=== PATIENT | male | born 1935 | race Caucasian/White ===

== ENCOUNTER → 2018-08-29 | Outpatient (REF) | payer MEDICARE, BC ==
[~2018-08-29] MED LIST: AMLODIPINE BESYL5 MG PO; ASPIRINCHW 81MG PO; ATENOLOL50 MG OR; AVODART0.5 MG OR; BABY ASPIRIN81 MG OR; LOSARTAN POT50 MG PO; Levaquin OR; PRILOSEC20 MG PO; TAMSULOSIN0.4 MG PO
== END | disposition home or self-care (01) ==
LOC: MRI 09:09
PROVIDERS: ATTEND Nurse Practitioner Family
DX: M25.562 Pain in left knee (principal); S83.242D Other tear of medial meniscus, current injury, left knee, subsequent encounter

== ENCOUNTER → 2018-09-16 | Outpatient (REF) | payer MEDICARE, BC ==
[2018-09-16 07:24] LABS: HEMATOCRIT 46.4 % (39.0-50.0); HEMOGLOBIN 15.5 g/dl (14.0-18.0); IMMATURE GRANULOCYTES 0.4 % (0.0-5.0); MEAN CELL VOLUME 92.1 fL CALC (80.0-100.0); MEAN CORPUSCULAR HGB 30.8 pG CALC (26.0-32.0); MEAN CORPUSCULAR HGB CONC 33.4 g/L CALC (32.0-36.0); NEUT# 4.04 thou/uL (1.82-7.42); RED BLOOD COUNT 5.04 mill/uL (4.70-6.10); RED CELL DISTRI WIDTH 14.2 % (11.5-15.5)
[2018-09-16 07:49] LABS: ALBUMIN 4.5 g/dL (3.2-5.0); ALKALINE PHOSPHATASE 74 u/l (38-126); ANION GAP 15 (6-22 (CALC)); BILIRUBIN, TOTAL 0.7 mg/dL (0.0-1.4); BUN 13 mg/dL (8-23); BUN/CREATININE RATIO 15 (12-20 (CALC)); CALCULATED LDLCHOLESTEROL 69 mg/dL (62-129 (CALC)); CARBON DIOXIDE 28 mmol/l (22-30); CHLORIDE 102 mmol/l (95-108); CHOLESTEROL HDL RATIO 5.3 (<4.4 (CALC)); CREATININE 0.9 mg/dL (0.7-1.3); GFR > 60 ML/MIN (>=60 (CALC)); GFR FOR AFR.AMER. > 60 ML/MIN (>=60 (CALC)); HDL CHOLESTEROL 30 mg/dL (>=40); POTASSIUM 4.7 mmol/l (3.5-5.1); SGOT/AST 27 u/l (19-48); SODIUM 139 mmol/l (137-146); TOTAL CHOLESTEROL 158 mg/dl (0-199); TOTAL PROTEIN 6.6 g/dL (6.3-8.2); TOTAL TRIGLYCERIDES 296 mg/dl (30-149); VLDL CHOLESTROL 59 mg/dl (0-38 (CALC))
== END | disposition home or self-care (01) ==
LOC: LAB 06:45
PROVIDERS: ATTEND Nurse Practitioner Family
DX: C92.01 Acute myeloblastic leukemia, in remission (principal); E78.49 Other hyperlipidemia; I10 Essential (primary) hypertension; N40.0 Benign prostatic hyperplasia without lower urinary tract symptoms; R97.20 Elevated prostate specific antigen [PSA]

== ENCOUNTER 2018-10-07 01:21 | Observation (INO) | payer MEDICARE, BC ==
[~2018-10-07] VITALS: Ht 185.4 cm; Wt 88.9 kg
[~2018-10-07 01:21] MED LIST changes: -AMLODIPINE BESYL5 MG PO; -LOSARTAN POT50 MG PO
--- NOTE | 2018-10-07 01:30 | NUR ---
PATIENT TO ROOM 9 VIA WHEELCHAIR FOR BEDSIDE TRIAGE. PATIENT UNDRESSED INTO A GOWN, PLACED ON MONITOR. AWAITING MD OWEN.
[2018-10-07] MEDS ORDERED: AMLODIPINE BESYL5 MG PO (01:57)
[2018-10-07] MEDS ORDERED: LOSARTAN POT50 MG PO (01:57)
[2018-10-07 02:39] LABS: HEMATOCRIT 43.3 % (39.0-50.0); HEMOGLOBIN 14.5 g/dl (14.0-18.0); IMMATURE GRANULOCYTES 0.6 % (0.0-5.0); MEAN CELL VOLUME 91.7 fL CALC (80.0-100.0); MEAN CORPUSCULAR HGB 30.7 pG CALC (26.0-32.0); MEAN CORPUSCULAR HGB CONC 33.5 g/L CALC (32.0-36.0); NEUT# 4.26 thou/uL (1.82-7.42); RED BLOOD COUNT 4.72 mill/uL (4.70-6.10); RED CELL DISTRI WIDTH 13.6 % (11.5-15.5)
[2018-10-07 02:51] LABS: ALBUMIN 4.4 g/dL (3.2-5.0); ALKALINE PHOSPHATASE 71 u/l (38-126); ANION GAP 12 (6-22 (CALC)); BILIRUBIN, TOTAL 0.7 mg/dL (0.0-1.4); BUN 20 mg/dL (8-23); BUN/CREATININE RATIO 22 (12-20 (CALC)); CARBON DIOXIDE 27 mmol/l (22-30); CHLORIDE 103 mmol/l (95-108); CREATININE 0.9 mg/dL (0.7-1.3); GFR > 60 ML/MIN (>=60 (CALC)); GFR FOR AFR.AMER. > 60 ML/MIN (>=60 (CALC)); SGOT/AST 26 u/l (19-48); SODIUM 138 mmol/l (137-146); TOTAL PROTEIN 6.7 g/dL (6.3-8.2)
[2018-10-07 03:03] LABS: MYOGLOBIN 65 ng/mL (0 - 121)
[2018-10-07 03:36] LABS: URINE BILIRUBIN - DIPSTICK NEGATIVE (NEGATIVE); URINE BLOOD DIPSTICK NEGATIVE (NEGATIVE); URINE COLOR YELLOW; URINE GLUCOSE - DIPSTICK NEGATIVE (NEGATIVE); URINE KETONE NEGATIVE (NEGATIVE); URINE LEUK ESTERASE NEGATIVE (NEGATIVE); URINE NITRITE - DIPSTICK NEGATIVE (Negative); URINE PROTEIN - DIPSTICK NEGATIVE (NEG-TRACE); URINE UROBILINOGEN - DIPSTICK 0.2 E.U./dL (0.2)
[2018-10-07 03:38] LABS: COCAINE NEGATIVE (NEGATIVE); METHADONE NEGATIVE (NEGATIVE); TETRAHYDROCANNABIONOL NEGATIVE (NEGATIVE)
[2018-10-07 03:39] LABS: BARBITURATES NEGATIVE (NEGATIVE); OXCYCODONE NEGATIVE (NEGATIVE); TRICYLIC ANTIDEPRESSANTS NEGATIVE (NEGATIVE)
--- NOTE | 2018-10-07 04:15 | NUR ---
TO BE ADMITTED. DISCUSSED.
--- NOTE | 2018-10-07 05:03 | NUR ---
Admission Note Report Given to: HIRA CORBIN Transported by: Wheelchair X Stretcher Transported with: X Nurse Transporter X Patent IV [id number] X Tree Doctor
--- NOTE | 2018-10-07 05:10 | NUR ---
TO FLOOR BY STRETCHER
[2018-10-07 05:12] VITALS: BP 146/82
--- NOTE | 2018-10-07 05:22 | NUR ---
PT. ARRIVED TO THE FLOOR AT 0510 VIA STRETCHER ACCOMPANIED BY ER NURSE; PT. ABLE TO AMBULATE TO SCALE AND BED WITH STEADY GAIT; HATCHERY HELPER IN AT BEDSIDE OBTAINING VS; VSS; TELEMETRY IN PLACE; EDUCATED ON POC, CALL LIGHT, AND ROOM; VERBALIZES UNDERSTANDING; AT BEDSIDE; NEURO CHECK COMPLETED AND WNL; ADMISSION ASSESSMENT COMPLETED; ENCOURAGED TO CALL FOR ANY NEEDS; CALL LIGHT IS IN REACH; WILL CONTINUE TO MONITOR.
--- NOTE | 2018-10-07 07:00 | NUR ---
REPORT RECEIVED FROM HIRA CORBIN;PT RESTING IN SEMI FOWLERS POSITION WITH SPOUSE AT BEDSIDE;INTRODUCED SELF TO PT AND POC DISCUSSED;RESPIRATIONS EVEN AND UNLABORED ON RA;PT DENIES ANY CURRENT PAIN OR NEEDS;ENCOURAGED TO CALL FOR ASSISTANCE IF NEEDED;FALL PRECAUTIONS IN PLACE WITH BED IN THE LOWEST POSITION AND CALL LIGHT IN REACH;WILL CONTINUE TO MONITOR
--- NOTE | 2018-10-07 10:00 | NUR ---
PT RESTING IN SEMI FOWLERS POSITION,A&O X3;IT SHOULD BE NOTED THAT PT IS VERY HARD OR HEARING;PT DENIES ANY CURRENT PAIN OR DIZZINESS, PAIN SCALE AND REPORTING EDUCATED;RESPIRATIONS EVEN AND UNLABORED ON RA,CLEAR LUNG SOUNDS;ABDOMEN SOFT ON PALPATION AND ACTIVE IN ALL 4 QUADRANTS;STRONG PEDAL PULSES;SKIN INTACT;TELE MONITORING IN PLACE;#20G TO RAC FLUSHED AND NORMAL SALINE STARTED AT 100ML/HR PER ORDER;ORTHOSTATICS OBTAINED AT THIS TIME SUPINE BP 121/70 HR 71, SITTING BP 142/82 HR 78, AND STANDING BP 130/83 HR 87;PT DENIES ANY DIZZINESS WHILE TAKING ORTHOSTATICS;PT DENIES ANY ADDITIONAL NEEDS AND IS ENCOURAGED TO CALL FOR ASSISTANCE IF NEEDED;FALL PRECAUTIONS IN PLACE WITH CALL LIGHT IN REACH;WILL CONTINUE TO MONITOR
[2018-10-07 10:02] VITALS: BP 121/70
[2018-10-07 10:07] VITALS: BP 142/82
[2018-10-07 10:12] VITALS: BP 130/83
--- NOTE | 2018-10-07 11:40 | NUR ---
PT RESTING IN BED WITH FAMILY AT BEDSIDE;RESPIRATIONS EVEN AND UNLABORED ON RA;PT DENIES ANY CURRENT PAIN OR NEEDS;IV FLUIDS D/C AT THIS TIME PER ; AT BEDSIDE DISCUSSING POC INCLUDING D/C HOME,PT AND FAMILY VERBALIZE UNDERSTANDING;TELE MONITORING IN PLACE;PT DENIES ANY ADDITIONAL NEEDS AT THIS TIME AND IS ENCOURAGED TO CALL FOR ASSISTANCE IF NEEDED;CALL LIGHT IN REACH;WILL CONTINUE TO MONITOR
[2018-10-07 12:00] VITALS: BP 135/78
--- NOTE | 2018-10-07 13:00 | NUR ---
PT AMBULATED WITH A STEADY GAIT THROUGHOUT ALL 3 HALLWAYS;PT DENIES ANY DIZZINESS OR PAIN;RE-POSITIONED IN BED FOR COMFORT;WILL CONTINUE TO MONITOR
--- NOTE | 2018-10-07 15:35 | NUR ---
ALL DISCHARGE INSTRUCTIONS PROVIDED AT THIS TIME,QUESTIONS ANSWERED;IV SITE REMOVED;PT DENIES ANY ADDITIONAL NEEDS AND IS ENCOURAGED TO FOLLOW UP WITH PRIMARY CARE DOCTOR;PT DENIES THE NEED FOR WHEELCHAIR FOR DISCHARGE HOME.
--- NOTE | 2018-10-07 15:39 | NUR ---
Discharge instructions given. Patient verbalizes understanding of same. Discharged in stable condition via Ambulatory to Home with family. All belongings sent with pt. Pt ambulated with a steady gait accompanied by family.
== END 2018-10-07 15:43 | disposition home or self-care (01) ==
LOC: ED 01:21 → ED-I 04:00 → ED 04:46 → MS2 04:47
PROVIDERS: Emergency Medicine; ADMIT Internal Medicine; ATTEND Internal Medicine
DX: R42 Dizziness and giddiness (principal); I10 Essential (primary) hypertension; C95.90 Leukemia, unspecified not having achieved remission; N40.0 Benign prostatic hyperplasia without lower urinary tract symptoms; H91.90 Unspecified hearing loss, unspecified ear; Z85.72 Personal history of non-Hodgkin lymphomas; Z92.21 Personal history of antineoplastic chemotherapy
CPT/HCPCS: J1650

== ENCOUNTER 2021-11-05 00:21 | Emergency (ER) | payer MEDICARE, BC ==
[~2021-11-05] VITALS: Ht 185.4 cm; Wt 84.0 kg
[2021-11-05] VITALS (7 sets, daily range): BP systolic 95–136; BP diastolic 49–79
[~2021-11-05 00:21] MED LIST changes: +AMLODIPINE BESYL5 MG PO; +LOSARTAN POT50 MG PO
[2021-11-05 01:14] LABS: URINE BILIRUBIN - DIPSTICK NEGATIVE (NEGATIVE); URINE BLOOD DIPSTICK SMALL (NEGATIVE); URINE COLOR YELLOW; URINE GLUCOSE - DIPSTICK NEGATIVE (NEGATIVE); URINE KETONE NEGATIVE (NEGATIVE); URINE LEUK ESTERASE NEGATIVE (NEGATIVE); URINE PH 5.5 (4.5-8.0); URINE PROTEIN - DIPSTICK NEGATIVE (NEG-TRACE); URINE UROBILINOGEN - DIPSTICK 0.2 E.U./dL (0.2)
[2021-11-05 01:20] LABS: URINE NITRITE - DIPSTICK NEGATIVE (Negative)
[2021-11-05 01:22] LABS: IMMATURE GRANULOCYTES 0.3 % (0.0-5.0); MEAN CELL VOLUME 93.2 fL CALC (80.0-100.0); MEAN CORPUSCULAR HGB 30.7 pG CALC (26.0-32.0); MEAN CORPUSCULAR HGB CONC 32.9 g/dL CAL (32.0-36.0); NEUT# 2.77 thou/uL (1.82-7.42); RED BLOOD COUNT 4.53 mill/uL (4.70-6.10); RED CELL DISTRI WIDTH 13.8 % (11.5-15.5)
[2021-11-05 01:24] LABS: HEMATOCRIT 42.2 % (39.0-50.0); HEMOGLOBIN 13.9 g/dl (14.0-18.0)
[2021-11-05 01:26] LABS: ALBUMIN 3.9 g/dL (3.2-5.0); ALKALINE PHOSPHATASE 74 u/l (38-126); ANION GAP 9 (6-22 (CALC)); BILIRUBIN, TOTAL 0.8 mg/dL (0.0-1.4); BUN 23 mg/dL (8-23); BUN/CREATININE RATIO 26 (12-20 (CALC)); CARBON DIOXIDE 26 mmol/l (22-30); CHLORIDE 106 mmol/l (95-108); CPK 33 u/l (52-200); CREATININE 0.9 mg/dL (0.7-1.3); GFR > 60 ML/MIN (>=60 (CALC)); GFR FOR AFR.AMER. > 60 ML/MIN (>=60 (CALC)); MAGNESIUM 1.7 mg/dL (1.6-2.3); POTASSIUM 3.8 mmol/l (3.5-5.1); SGOT/AST 23 u/l (19-48); SODIUM 137 mmol/l (137-146); TOTAL PROTEIN 5.9 g/dL (6.3-8.2)
[2021-11-05 01:30] LABS: URINE SQUAMOUS EPITHELIAL CELL FEW EPI/hpf (0-FEW); URINE WBC 0-2 WBC/hpf (0-5)
[2021-11-05] MEDS ORDERED: VENTOLIN HFA IN (02:26)
[2021-11-05] MEDS ORDERED: VIBRAMYCIN100 M2 PO (02:26)
--- NOTE | 2021-11-06 08:00 | NUR ---
PRELIMINARY BLOOD CULTURE RESULTS SHOW GRAM POSITIVE COCCI IN 4/[address] HORTON. PT PRESENTED WITH CHILLS/FEVER. WOULD LIKE PT TO RETURN FOR RE-EVAL. CALLED PT AND PT'S , NEITHER PHONE HAVE VM SET UP. WILL CALL AGAIN LATER.
== END 2021-11-05 02:44 | disposition home or self-care (01) ==
LOC: ED 00:21
PROVIDERS: Family Medicine
DX: J20.9 Acute bronchitis, unspecified (principal); R78.81 Bacteremia; C85.90 Non-Hodgkin lymphoma, unspecified, unspecified site; I10 Essential (primary) hypertension; N40.0 Benign prostatic hyperplasia without lower urinary tract symptoms; Z79.899 Other long term (current) drug therapy; Z95.828 Presence of other vascular implants and grafts; Z28.310 Unvaccinated for COVID-19; Z20.822 Contact with and (suspected) exposure to COVID-19

== ENCOUNTER 2021-11-08 09:11 | Emergency (ER) | payer MEDICARE, BC ==
[2021-11-08] VITALS (8 sets, daily range): BP systolic 145–168; BP diastolic 75–97
[~2021-11-08] VITALS: Ht 185.4 cm; Wt 85.9 kg
[~2021-11-08 09:11] MED LIST changes: +VENTOLIN HFA IN; +VIBRAMYCIN100 M2 PO
[2021-11-08] MEDS ORDERED: METOCLOPRAMIDE10 M1 (10:24)
[2021-11-08] MEDS ORDERED: [UNRECOGNIZED DRUG - OTHER] (10:25)
[2021-11-08 11:10] LABS: HEMATOCRIT 40.4 % (39.0-50.0); HEMOGLOBIN 13.4 g/dl (14.0-18.0); MEAN CELL VOLUME 94.4 fL CALC (80.0-100.0); MEAN CORPUSCULAR HGB 31.3 pG CALC (26.0-32.0); MEAN CORPUSCULAR HGB CONC 33.2 g/dL CAL (32.0-36.0); NEUT# 4.28 thou/uL (1.82-7.42); RED BLOOD COUNT 4.28 mill/uL (4.70-6.10); RED CELL DISTRI WIDTH 13.9 % (11.5-15.5)
[2021-11-08 11:28] LABS: ALBUMIN 3.5 g/dL (3.2-5.0); ALKALINE PHOSPHATASE 65 u/l (38-126); ANION GAP 11 (6-22 (CALC)); BUN 24 mg/dL (8-23); BUN/CREATININE RATIO 28 (12-20 (CALC)); CARBON DIOXIDE 26 mmol/l (22-30); CHLORIDE 102 mmol/l (95-108); CREATININE 0.9 mg/dL (0.7-1.3); GFR > 60 ML/MIN (>=60 (CALC)); GFR FOR AFR.AMER. > 60 ML/MIN (>=60 (CALC)); MAGNESIUM 1.9 mg/dL (1.6-2.3); POTASSIUM 4.2 mmol/l (3.5-5.1); SGOT/AST 21 u/l (19-48); SODIUM 135 mmol/l (137-146); TOTAL PROTEIN 5.7 g/dL (6.3-8.2)
[2021-11-08 11:44] LABS: IMMATURE GRANULOCYTES 6.7 % (0.0-5.0)
== END 2021-11-08 12:23 | disposition home or self-care (01) ==
LOC: ED 09:11
PROVIDERS: Internal Medicine
DX: T80.211A Bloodstream infection due to central venous catheter, initial encounter (principal); I10 Essential (primary) hypertension; C85.90 Non-Hodgkin lymphoma, unspecified, unspecified site; C95.90 Leukemia, unspecified not having achieved remission; Y83.8 Other surgical procedures as the cause of abnormal reaction of the patient, or of later complication, without mention of misadventure at the time of the procedure; Z20.822 Contact with and (suspected) exposure to COVID-19

== ENCOUNTER 2022-09-17 23:11 | Emergency (ER) | payer MEDICARE, BC ==
[~2022-09-17] VITALS: Ht 182.9 cm; Wt 71.3 kg
[~2022-09-17 23:11] MED LIST changes: +ASPIRIN81 MG PO; +AZITHROMYCIN500 MG PO; +LIPITOR40 M1 PO; +METOCLOPRAMIDE10 M1; +PLAVIX75 MG PO; +[UNRECOGNIZED DRUG - OTHER]
[2022-09-18 00:57] VITALS: BP 132/73
== END 2022-09-18 00:57 | disposition home or self-care (01) ==
LOC: ED 23:11
DX: T83.031A Leakage of indwelling urethral catheter, initial encounter (principal); N40.1 Benign prostatic hyperplasia with lower urinary tract symptoms; R33.8 Other retention of urine; I10 Essential (primary) hypertension; C85.90 Non-Hodgkin lymphoma, unspecified, unspecified site; I25.2 Old myocardial infarction; Y84.6 Urinary catheterization as the cause of abnormal reaction of the patient, or of later complication, without mention of misadventure at the time of the procedure; Z95.5 Presence of coronary angioplasty implant and graft; Z86.711 Personal history of pulmonary embolism

== ENCOUNTER 2022-09-25 08:51 | Inpatient (IN) | payer MEDICARE, BC ==
[~2022-09-25] VITALS: Ht 182.9 cm; Wt 74.0 kg
[2022-09-25] VITALS (13 sets, daily range): BP systolic 125–169; BP diastolic 79–98
[2022-09-25 09:49] LABS: BASO% 0.3 % (0-3); EOS% 1.6 % (0-8); HEMATOCRIT 35.9 % (39.0-50.0); HEMOGLOBIN 11.3 g/dl (14.0-18.0); IMMATURE GRANULOCYTES 0.6 % (0.0-5.0); LYMPH% 32.4 % (15-41); MEAN CELL VOLUME 87.3 fL CALC (80.0-100.0); MEAN CORPUSCULAR HGB 27.5 pG CALC (26.0-32.0); MEAN CORPUSCULAR HGB CONC 31.5 g/dL CAL (32.0-36.0); MONO% 4.9 % (2-13); NEUT# 4.14 thou/uL (1.82-7.42); NEUT% 60.2 % (42-76); RED BLOOD COUNT 4.11 mill/uL (4.70-6.10); RED CELL DISTRI WIDTH 14.3 % (11.5-15.5)
[2022-09-25 10:02] LABS: ALBUMIN 3.3 g/dL (3.2-5.0); ALKALINE PHOSPHATASE 89 u/l (38-126); BUN 22 mg/dL (8-23); BUN/CREATININE RATIO 26 (12-20 (CALC)); CHLORIDE 93 mmol/l (95-108); CREATININE 0.9 mg/dL (0.7-1.3); GFR FOR AFR.AMER. > 60 ML/MIN (>=60 (CALC)); GFR OTHER RACES > 60 ML/MIN (>=60 (CALC)); POTASSIUM 3.6 mmol/l (3.5-5.1); SODIUM 136 mmol/l (137-146); TOTAL PROTEIN 5.4 g/dL (6.3-8.2)
[2022-09-25 10:03] LABS: ANION GAP 9 (6-22 (CALC)); BILIRUBIN, TOTAL 1.2 mg/dL (0.2-1.3); CARBON DIOXIDE 38 mmol/l (22-30); SGOT/AST 81 u/l (19-48)
[2022-09-25 19:01] LABS: URINE BILIRUBIN - DIPSTICK NEGATIVE (NEGATIVE); URINE BLOOD DIPSTICK MODERATE (NEGATIVE); URINE CLARITY SL CLOUDY; URINE COLOR YELLOW; URINE GLUCOSE - DIPSTICK NEGATIVE (NEGATIVE); URINE KETONE NEGATIVE (NEGATIVE); URINE LEUK ESTERASE NEGATIVE (Negative); URINE NITRITE - DIPSTICK NEGATIVE (Negative); URINE PH 8.5 (4.5-8.0); URINE PROTEIN - DIPSTICK TRACE mg/dL (NEG-TRACE); URINE SPECIFIC GRAVITY 1.015; URINE UROBILINOGEN - DIPSTICK 0.2 E.U./dL (0.2)
[2022-09-25 19:23] LABS: URINE AMORPH SEDIMENT FEW hpf (NONE-FER); URINE BACTERIA FEW hpf; URINE WBC 0-2 WBC/hpf (0-5)
[2022-09-26 04:00] VITALS: BP 134/71
[2022-09-26 05:27] LABS: BASO% 0.3 % (0-3); IMMATURE GRANULOCYTES 0.8 % (0.0-5.0); LYMPH% 24.1 % (15-41); MEAN CELL VOLUME 87.5 fL CALC (80.0-100.0); MEAN CORPUSCULAR HGB 27.7 pG CALC (26.0-32.0); MEAN CORPUSCULAR HGB CONC 31.7 g/dL CAL (32.0-36.0); MONO% 10.5 % (2-13); NEUT# 2.4 thou/uL (1.82-7.42); NEUT% 64.3 % (42-76); RED BLOOD COUNT 3.21 mill/uL (4.70-6.10); RED CELL DISTRI WIDTH 14.2 % (11.5-15.5)
[2022-09-26 05:30] LABS: HEMATOCRIT 28.1 % (39.0-50.0); HEMOGLOBIN 8.9 g/dl (14.0-18.0)
[2022-09-26 05:41] VITALS: BP 165/72
[2022-09-26 06:03] LABS: ALBUMIN 2.7 g/dL (3.2-5.0); ALKALINE PHOSPHATASE 87 u/l (38-126); BUN 25 mg/dL (8-23); BUN/CREATININE RATIO 29 (12-20 (CALC)); C-REACTIVE PROTEIN 6.7 mg/dL (0-0.9); CARBON DIOXIDE 36 mmol/l (22-30); CHLORIDE 95 mmol/l (95-108); CREATININE 0.9 mg/dL (0.7-1.3); GFR FOR AFR.AMER. > 60 ML/MIN (>=60 (CALC)); GFR OTHER RACES > 60 ML/MIN (>=60 (CALC)); SGOT/AST 65 u/l (19-48); SODIUM 135 mmol/l (137-146); TOTAL PROTEIN 4.6 g/dL (6.3-8.2)
[2022-09-26 06:14] LABS: ANION GAP 8 (6-22 (CALC)); BILIRUBIN, TOTAL 0.4 mg/dL (0.2-1.3); POTASSIUM 3.5 mmol/l (3.5-5.1)
[2022-09-26 10:00] VITALS: BP 129/71
[2022-09-26 15:14] VITALS: BP 148/79
[2022-09-26 19:05] VITALS: BP 145/83
[2022-09-27] VITALS (7 sets, daily range): BP systolic 138–162; BP diastolic 63–86
[2022-09-27 05:20] LABS: HEMATOCRIT 28.8 % (39.0-50.0); HEMOGLOBIN 9.3 g/dl (14.0-18.0); MEAN CORPUSCULAR HGB 28.1 pG CALC (26.0-32.0); MEAN CORPUSCULAR HGB CONC 32.3 g/dL CAL (32.0-36.0); RED BLOOD COUNT 3.31 mill/uL (4.70-6.10); RED CELL DISTRI WIDTH 14.3 % (11.5-15.5)
[2022-09-27 05:36] LABS: ALBUMIN 2.7 g/dL (3.2-5.0); ALKALINE PHOSPHATASE 81 u/l (38-126); ANION GAP 6 (6-22 (CALC)); BILIRUBIN, TOTAL 0.5 mg/dL (0.2-1.3); BUN 29 mg/dL (8-23); BUN/CREATININE RATIO 37 (12-20 (CALC)); CARBON DIOXIDE 36 mmol/l (22-30); CHLORIDE 95 mmol/l (95-108); CREATININE 0.8 mg/dL (0.7-1.3); GFR FOR AFR.AMER. > 60 ML/MIN (>=60 (CALC)); GFR OTHER RACES > 60 ML/MIN (>=60 (CALC)); MAGNESIUM 1.6 mg/dL (1.6-2.3); POTASSIUM 3.5 mmol/l (3.5-5.1); SGOT/AST 66 u/l (19-48); SODIUM 133 mmol/l (137-146); TOTAL PROTEIN 4.6 g/dL (6.3-8.2)
[2022-09-28] VITALS (10 sets, daily range): BP systolic 132–157; BP diastolic 68–85
[2022-09-28 06:18] LABS: BASO% 0.1 % (0-3); EOS% 0.3 % (0-8); HEMATOCRIT 31.9 % (39.0-50.0); HEMOGLOBIN 10.1 g/dl (14.0-18.0); IMMATURE GRANULOCYTES 0.8 % (0.0-5.0); LYMPH% 25.1 % (15-41); MEAN CELL VOLUME 86.4 fL CALC (80.0-100.0); MEAN CORPUSCULAR HGB 27.4 pG CALC (26.0-32.0); MEAN CORPUSCULAR HGB CONC 31.7 g/dL CAL (32.0-36.0); MONO% 5.2 % (2-13); NEUT# 4.84 thou/uL (1.82-7.42); NEUT% 68.5 % (42-76); RED BLOOD COUNT 3.69 mill/uL (4.70-6.10); RED CELL DISTRI WIDTH 14.4 % (11.5-15.5)
[2022-09-28 06:58] LABS: ALBUMIN 2.8 g/dL (3.2-5.0); ALKALINE PHOSPHATASE 90 u/l (38-126); ANION GAP 9 (6-22 (CALC)); BILIRUBIN, TOTAL 0.5 mg/dL (0.2-1.3); BUN 30 mg/dL (8-23); BUN/CREATININE RATIO 38 (12-20 (CALC)); CARBON DIOXIDE 30 mmol/l (22-30); CHLORIDE 98 mmol/l (95-108); CREATININE 0.8 mg/dL (0.7-1.3); GFR FOR AFR.AMER. > 60 ML/MIN (>=60 (CALC)); GFR OTHER RACES > 60 ML/MIN (>=60 (CALC)); POTASSIUM 3.6 mmol/l (3.5-5.1); SGOT/AST 65 u/l (19-48); SODIUM 132 mmol/l (137-146)
[2022-09-29] VITALS (7 sets, daily range): BP systolic 140–162; BP diastolic 71–93
[2022-09-29 05:48] LABS: HEMATOCRIT 27.3 % (39.0-50.0); HEMOGLOBIN 8.8 g/dl (14.0-18.0); MEAN CELL VOLUME 87.5 fL CALC (80.0-100.0); MEAN CORPUSCULAR HGB 28.2 pG CALC (26.0-32.0); MEAN CORPUSCULAR HGB CONC 32.2 g/dL CAL (32.0-36.0); RED BLOOD COUNT 3.12 mill/uL (4.70-6.10); RED CELL DISTRI WIDTH 14.2 % (11.5-15.5)
[2022-09-29 05:55] LABS: ALBUMIN 2.5 g/dL (3.2-5.0); ALKALINE PHOSPHATASE 73 u/l (38-126); ANION GAP 9 (6-22 (CALC)); BUN 31 mg/dL (8-23); BUN/CREATININE RATIO 39 (12-20 (CALC)); CARBON DIOXIDE 31 mmol/l (22-30); CHLORIDE 97 mmol/l (95-108); CREATININE 0.8 mg/dL (0.7-1.3); GFR FOR AFR.AMER. > 60 ML/MIN (>=60 (CALC)); GFR OTHER RACES > 60 ML/MIN (>=60 (CALC)); MAGNESIUM 1.5 mg/dL (1.6-2.3); POTASSIUM 3.8 mmol/l (3.5-5.1); SGOT/AST 51 u/l (19-48); SODIUM 133 mmol/l (137-146); TOTAL PROTEIN 4.3 g/dL (6.3-8.2)
[2022-09-29 06:07] LABS: BILIRUBIN, TOTAL 0.2 mg/dL (0.2-1.3)
[2022-09-30] VITALS (7 sets, daily range): BP systolic 124–165; BP diastolic 61–93
[2022-09-30 05:21] LABS: EOS% 0.6 % (0-8); HEMATOCRIT 27.5 % (39.0-50.0); HEMOGLOBIN 8.8 g/dl (14.0-18.0); IMMATURE GRANULOCYTES 1.7 % (0.0-5.0); MEAN CORPUSCULAR HGB 27.8 pG CALC (26.0-32.0); MONO% 7.9 % (2-13); NEUT# 4.08 thou/uL (1.82-7.42); NEUT% 76.8 % (42-76); RED BLOOD COUNT 3.16 mill/uL (4.70-6.10); RED CELL DISTRI WIDTH 14.6 % (11.5-15.5)
[2022-09-30 05:53] LABS: ALBUMIN 2.5 g/dL (3.2-5.0); ALKALINE PHOSPHATASE 77 u/l (38-126); ANION GAP 9 (6-22 (CALC)); BILIRUBIN, TOTAL 0.2 mg/dL (0.2-1.3); BUN 30 mg/dL (8-23); BUN/CREATININE RATIO 39 (12-20 (CALC)); CARBON DIOXIDE 28 mmol/l (22-30); CHLORIDE 100 mmol/l (95-108); CREATININE 0.8 mg/dL (0.7-1.3); GFR FOR AFR.AMER. > 60 ML/MIN (>=60 (CALC)); GFR OTHER RACES > 60 ML/MIN (>=60 (CALC)); POTASSIUM 4.4 mmol/l (3.5-5.1); SGOT/AST 47 u/l (19-48); SODIUM 133 mmol/l (137-146); TOTAL PROTEIN 4.3 g/dL (6.3-8.2)
[2022-10-01] VITALS (7 sets, daily range): BP systolic 127–153; BP diastolic 71–88
[2022-10-01 05:11] LABS: BASO% 0.2 % (0-3); EOS% 1.7 % (0-8); HEMOGLOBIN 9.2 g/dl (14.0-18.0); IMMATURE GRANULOCYTES 1.3 % (0.0-5.0); LYMPH% 13.5 % (15-41); MEAN CELL VOLUME 87.6 fL CALC (80.0-100.0); MEAN CORPUSCULAR HGB 27.8 pG CALC (26.0-32.0); MEAN CORPUSCULAR HGB CONC 31.7 g/dL CAL (32.0-36.0); MONO% 7.9 % (2-13); NEUT# 4.51 thou/uL (1.82-7.42); NEUT% 75.4 % (42-76); RED BLOOD COUNT 3.31 mill/uL (4.70-6.10); RED CELL DISTRI WIDTH 14.7 % (11.5-15.5)
[2022-10-01 05:27] LABS: ALBUMIN 2.6 g/dL (3.2-5.0); ALKALINE PHOSPHATASE 85 u/l (38-126); ANION GAP 8 (6-22 (CALC)); BILIRUBIN, TOTAL 0.2 mg/dL (0.2-1.3); BUN 28 mg/dL (8-23); BUN/CREATININE RATIO 37 (12-20 (CALC)); CARBON DIOXIDE 30 mmol/l (22-30); CHLORIDE 98 mmol/l (95-108); CREATININE 0.8 mg/dL (0.7-1.3); GFR FOR AFR.AMER. > 60 ML/MIN (>=60 (CALC)); GFR OTHER RACES > 60 ML/MIN (>=60 (CALC)); SGOT/AST 50 u/l (19-48); SODIUM 131 mmol/l (137-146); TOTAL PROTEIN 4.3 g/dL (6.3-8.2)
[2022-10-02 03:23] VITALS: BP 157/85
[2022-10-02 05:32] LABS: EOS% 0.6 % (0-8); HEMATOCRIT 28.4 % (39.0-50.0); MEAN CELL VOLUME 87.1 fL CALC (80.0-100.0); MEAN CORPUSCULAR HGB 27.6 pG CALC (26.0-32.0); MEAN CORPUSCULAR HGB CONC 31.7 g/dL CAL (32.0-36.0); MONO% 8.5 % (2-13); NEUT# 3.99 thou/uL (1.82-7.42); NEUT% 73.9 % (42-76); RED BLOOD COUNT 3.26 mill/uL (4.70-6.10)
[2022-10-02 05:35] VITALS: BP 148/78
[2022-10-02 06:02] LABS: ALBUMIN 2.8 g/dL (3.2-5.0); ALKALINE PHOSPHATASE 78 u/l (38-126); ANION GAP 8 (6-22 (CALC)); BUN 31 mg/dL (8-23); BUN/CREATININE RATIO 39 (12-20 (CALC)); C-REACTIVE PROTEIN 4.5 mg/dL (0-0.9); CARBON DIOXIDE 28 mmol/l (22-30); CHLORIDE 99 mmol/l (95-108); CREATININE 0.8 mg/dL (0.7-1.3); GFR FOR AFR.AMER. > 60 ML/MIN (>=60 (CALC)); GFR OTHER RACES > 60 ML/MIN (>=60 (CALC)); POTASSIUM 4.9 mmol/l (3.5-5.1); SGOT/AST 53 u/l (19-48); SODIUM 130 mmol/l (137-146); TOTAL PROTEIN 4.7 g/dL (6.3-8.2)
[2022-10-02 06:07] LABS: BILIRUBIN, TOTAL 0.3 mg/dL (0.2-1.3)
[2022-10-02 09:29] VITALS: BP 125/68
[2022-10-02 15:22] VITALS: BP 132/74
[2022-10-02 18:10] VITALS: BP 140/75
[2022-10-02 23:14] VITALS: BP 137/78
[2022-10-03 03:23] VITALS: BP 156/88
[2022-10-03 05:48] VITALS: BP 137/88
[2022-10-03 06:01] LABS: HEMATOCRIT 27.7 % (39.0-50.0); MEAN CELL VOLUME 86.6 fL CALC (80.0-100.0); MEAN CORPUSCULAR HGB 28.1 pG CALC (26.0-32.0); MEAN CORPUSCULAR HGB CONC 32.5 g/dL CAL (32.0-36.0); RED BLOOD COUNT 3.2 mill/uL (4.70-6.10); RED CELL DISTRI WIDTH 14.7 % (11.5-15.5)
[2022-10-03 06:21] LABS: ALBUMIN 2.7 g/dL (3.2-5.0); ALKALINE PHOSPHATASE 79 u/l (38-126); ANION GAP 9 (6-22 (CALC)); BILIRUBIN, TOTAL 0.2 mg/dL (0.2-1.3); BUN 30 mg/dL (8-23); BUN/CREATININE RATIO 39 (12-20 (CALC)); CARBON DIOXIDE 27 mmol/l (22-30); CHLORIDE 100 mmol/l (95-108); CREATININE 0.8 mg/dL (0.7-1.3); GFR FOR AFR.AMER. > 60 ML/MIN (>=60 (CALC)); GFR OTHER RACES > 60 ML/MIN (>=60 (CALC)); MAGNESIUM 1.6 mg/dL (1.6-2.3); POTASSIUM 4.3 mmol/l (3.5-5.1); SGOT/AST 41 u/l (19-48); SODIUM 132 mmol/l (137-146); TOTAL PROTEIN 4.5 g/dL (6.3-8.2)
[2022-10-03 07:49] VITALS: BP 119/61
[2022-10-03 09:36] VITALS: BP 134/70
[2022-10-03] MEDS ORDERED: OMNICEF300 MG PO (13:03)
[2022-10-03] MEDS ORDERED: DEXAMETHASON6 MG PO (13:04)
== END 2022-10-03 15:44 | disposition home health service (06) | DRG 193 ==
LOC: ED 08:51 → ED-I 10:20 → ED 13:46 → MS2 13:47
PROVIDERS: Family Medicine; Internal Medicine; ADMIT Internal Medicine; ATTEND Internal Medicine
PROC: 0T9B70Z Drainage of Bladder with Drainage Device, Via Natural or Artificial Opening (ICD-10-PCS; principal; 2022-09-25)
DX: J18.9 Pneumonia, unspecified organism (principal); J96.01 Acute respiratory failure with hypoxia; C85.90 Non-Hodgkin lymphoma, unspecified, unspecified site; C92.40 Acute promyelocytic leukemia, not having achieved remission; N13.8 Other obstructive and reflux uropathy; I25.10 Atherosclerotic heart disease of native coronary artery without angina pectoris; N40.1 Benign prostatic hyperplasia with lower urinary tract symptoms; R33.8 Other retention of urine; I10 Essential (primary) hypertension; I25.2 Old myocardial infarction; Z95.5 Presence of coronary angioplasty implant and graft; Z88.1 Allergy status to other antibiotic agents; Z86.711 Personal history of pulmonary embolism; Z88.0 Allergy status to penicillin; Z88.2 Allergy status to sulfonamides; Z88.8 Allergy status to other drugs, medicaments and biological substances; Z79.02 Long term (current) use of antithrombotics/antiplatelets; Z79.82 Long term (current) use of aspirin; Z87.19 Personal history of other diseases of the digestive system; Z20.822 Contact with and (suspected) exposure to COVID-19
CPT/HCPCS: J0692; Q9967; S0073